=== PATIENT | female | born 1995 | race Two or more races ===

== ENCOUNTER → 2021-09-11 | Outpatient (CLI) | payer OTHER | END | disposition home or self-care (01) | LOC: PPH VACUNA 11-22 07:00 | PROVIDERS: ATTEND Emergency Medicine Pediatric Emergency Medicine | DX: Z23 Encounter for immunization (principal) ==

== ENCOUNTER 2024-12-21 12:53 | Outpatient (CLI) | payer OTHER ==
[2024-12-21 13:21] VITALS: BP 117/79
== END 2024-12-21 13:59 | disposition home or self-care (01) ==
LOC: NST 12:53
PROVIDERS: ATTEND Obstetrics & Gynecology
DX: Z3A.34 34 weeks gestation of pregnancy (principal)

== ENCOUNTER 2025-01-08 08:45 | Inpatient (IN) | payer OTHER ==
[~2025-01-08] VITALS: Ht 162.6 cm; Wt 74.4 kg
[2025-01-24] MEDS ORDERED: OXYTOCIN 500 ML IV SCH (05:30)
[2025-01-24 05:32] VITALS: BP 110/77
[2025-01-24] MEDS ORDERED: RINGERS SOLUTION,LACTATED 1,000 ML IV SCH ×2 (06:00→17:15)
[2025-01-24] MEDS ORDERED: PRENATAL CAPLE1 EAC1 PO (06:01)
[2025-01-24 06:27] LABS: HEMATOCRIT 36.8 % (36.0-45.00); HEMOGLOBIN 12.4 g/dL (12.0-15.00); MEAN CELL VOLUME 89.8 fL (80.00-100.00); MEAN CORPUSCULAR HEMOGLOBIN 30.2 pg (27.00-32.0); MEAN CORPUSCULAR HGB CONC 33.6 g/dl (32.0-36.0); PLATELET COUNT 221 K/uL (150-450); RED CELL DISTRIBUTION WIDTH 13.7 % (11.5-14.5)
[2025-01-24 06:30] LABS: INR < 0.93; PARTIAL THROMBOPLASTIN TIME 25.9 SECONDS (22.0-34.0); PROTHROMBIN TIME 9.9 SECONDS (9.0-11.5)
[2025-01-24 07:05] LABS: ALBUMIN 2.6 gm/dL (3.4-5.0); BILIRUBIN TOTAL 0.22 mg/dL (0.3-1.2); CALCIUM 9.4 mg/dL (8.5-10.1); CREATININE SERUM 0.61 mg/dL (0.55-1.02); GFR 115.16; GLOBULINA 4.1 G/DL (2.4-3.5); POTASSIUM 4.87 mEq/L (3.5-5.1); TOTAL PROTEIN 6.7 gm/dL (6.4-8.2)
[2025-01-24] MEDS ORDERED: OXYTOCIN 20 UNITS/500ML RL PIGGYBAG IV ONE (07:43)
[2025-01-24 07:49] VITALS: BP 111/66
[2025-01-24 12:00] VITALS: BP 116/72
[2025-01-24 15:38] VITALS: BP 127/75
[2025-01-24] MEDS ORDERED: MORPHINE SULFATE 4 MG/ML CARTRIDGE IV PRN (17:15)
[2025-01-24] MEDS ORDERED: OXYTOCIN 1,000 ML IV ONE (17:15)
[2025-01-24] MEDS ORDERED: OXYTOCIN 10 UNITS/ML VIAL ONE ×2 (17:34→20:38)
[2025-01-24] MEDS ORDERED: ERYTHROMYCIN BASE OPHT 1GM EACH TUBE OP ONE (17:34)
[2025-01-24] MEDS ORDERED: CEFAZOLIN SODIUM 1,000 MG VIAL ONE (17:41)
[2025-01-24] MEDS ORDERED: CEFAZOLIN SODIUM 1,000 MG VIAL IV SCH (18:00)
[2025-01-24] MEDS ORDERED: KETOROLAC TROMETHAMINE 30 MG VIAL IV SCH (18:00)
[2025-01-24] MEDS ORDERED: ACETAMINOPHEN 500 MG GEL..CAP PO SCH (18:00)
[2025-01-24] MEDS ORDERED: ONDANSETRON HCL 2 MG/ML VIAL IV SCH (18:00)
[2025-01-24] MEDS ORDERED: KETOROLAC TROMETHAMINE 30 MG VIAL ONE (20:24)
[2025-01-24 21:52] VITALS: BP 108/70
[2025-01-24 22:27] VITALS: BP 108/70
[2025-01-25] VITALS: BP 102/65
[2025-01-25] MEDS ORDERED: SIMETHICONE 125 MG CAPSULE PO SCH (01:00)
[2025-01-25] MEDS ORDERED: GABAPENTIN 300 MG CAPSULE PO SCH (01:00)
[2025-01-25 06:00] LABS: HEMATOCRIT 25.2 % (36.0-45.00); MEAN CELL VOLUME 89.3 fL (80.00-100.00); MEAN CORPUSCULAR HGB CONC 33.5 g/dl (32.0-36.0); PLATELET COUNT 163 K/uL (150-450); RED BLOOD COUNT 2.82 M/uL (4.00-6.00); RED CELL DISTRIBUTION WIDTH 14.1 % (11.5-14.5)
[2025-01-25 06:14] LABS: HEMOGLOBIN 8.4 g/dL (12.0-15.00); MEAN CORPUSCULAR HEMOGLOBIN 29.7 pg (27.00-32.0)
[2025-01-25] MEDS ORDERED: OxyCODONE HCL 5 MG TABLET (ROXICODONE) PO PRN (08:00)
[2025-01-25] MEDS ORDERED: KETOROLAC TROMETHAMINE 10 MG TABLET PO SCH (08:00)
[2025-01-25 08:56] VITALS: BP 93/61
[2025-01-25] MEDS ORDERED: IRON FUM,PS/FOLIC/BCOMP,C NO.9 1 CAP CAPSULE PO SCH (09:00)
[2025-01-25] MEDS ORDERED: DOCUSATE SODIUM 100MG CAP PO SCH (09:00)
[2025-01-25 16:18] VITALS: BP 109/74
[2025-01-25 20:46] VITALS: BP 101/67
[2025-01-26 01:00] VITALS: BP 118/67
[2025-01-26 08:00] VITALS: BP 100/68
== END 2025-01-26 12:47 | disposition home or self-care (01) | DRG 788 ==
LOC: LDR → OB/GYN 01-24 05:11 → LDR 01-24 05:11 → OB/GYN 01-24 11:46 → LDR 01-30 08:40
PROVIDERS: Obstetrics & Gynecology; ADMIT Obstetrics & Gynecology; ATTEND Obstetrics & Gynecology
PROC: 4A1HXCZ Monitoring of Products of Conception, Cardiac Rate, External Approach (ICD-10-PCS; 2025-01-24)
PROC: 10D00Z1 Extraction of Products of Conception, Low, Open Approach (ICD-10-PCS; principal; 2025-01-24 17:15)
DX: O62.0 Primary inadequate contractions (principal); O36.8130 Decreased fetal movements, third trimester, not applicable or unspecified; Z3A.39 39 weeks gestation of pregnancy; Z37.0 Single live birth

== ENCOUNTER 2025-01-20 15:45 | Outpatient (CLI) | payer OTHER ==
[~2025-01-20] VITALS: Ht 162.6 cm; Wt 73.0 kg
[2025-01-20 15:13] VITALS: BP 111/74
[2025-01-20 17:15] LABS: URINE APPEARANCE Clear; URINE BILIRRUBIN Negative (NEGATIVE); URINE BLOOD Negative; URINE COLOR Yellow; URINE GLUCOSE Negative (NEGATIVE); URINE KETONE Negative (NEGATIVE); URINE LEUKOCYTE Trace; URINE NITRATE Negative; URINE PROTEIN Negative (NEGATIVE); URINE UROBILINOGEN 0.2 E.U./dl
[2025-01-20 17:19] LABS: URINE BACTERIA 52.6 uL (0.0-1933); URINE EPITHELIAL CELLS 6.6 uL (0.0-38.8); URINE RBC 3.6 uL (0.0-20.8); URINE WBC 4.5 uL (0.0-23.2)
[2025-01-20] MEDS ORDERED: RINGERS SOLUTION,LACTATED 1,000 ML IV SCH (17:45)
[2025-01-20 20:11] VITALS: BP 111/74
== END 2025-01-20 20:11 | disposition home or self-care (01) ==
LOC: OBS/DEL 15:45
PROVIDERS: ATTEND Obstetrics & Gynecology
DX: O26.893 Other specified pregnancy related conditions, third trimester (principal); Z3A.39 39 weeks gestation of pregnancy